=== PATIENT | male | born 1975 | race African-American/Black ===

== ENCOUNTER 2017-02-10 11:18 | Emergency (ER) | payer OTHER ==
[~2017-02-10] VITALS: Ht 180.3 cm; Wt 77.1 kg
[~2017-02-10 11:18] MED LIST: IBUPROFEN 600600 M1 PO; NOHOMEMEDICATIONS; NORCO 5-325 TA1 EACH PO; PROBIOTIC1 EAC1 PO; TIZANIDINE HCL4 MG PO; ZANTAC 150MG T150 MG PO
[2017-02-10] MEDS ORDERED: TYLENOL EXTRA500 MG PO (12:47)
[2017-02-10] MEDS ORDERED: TIZANIDINE HCL4 MG PO (14:56)
[2017-02-10] MEDS ORDERED: NORCO 5-325 TA1 EACH PO (14:56)
[2017-02-10] MEDS ORDERED: NAPROSYN500 MG PO (14:56)
[2017-02-10 15:05] VITALS: BP 117/66
== END 2017-02-10 15:05 | disposition home or self-care (01) ==
LOC: ER 11:18
DX: M54.2 Cervicalgia (principal); F10.99 Alcohol use, unspecified with unspecified alcohol-induced disorder

== ENCOUNTER 2017-08-18 16:02 | Inpatient (IN) | payer OTHER ==
[~2017-08-18] VITALS: Ht 180.3 cm; Wt 77.1 kg
--- NOTE | ~2017-08-18 | H ---
[facility] [place] [address] HISTORY AND PHYSICAL Name: VALE AMBRIZ MAREK Room #: 422-P ADM IN M.R.#: [id number] Admission: 08/18/17 Attend Phys: Cam Zuniga MD Discharge: Date of : 77 Report #: [id number] THIS REPORT FOR: //name// CC: [facility] physician/PCP Cam Zuniga DATE OF SERVICE: 08/18/2017 CHIEF COMPLAINT: Acute left incarcerated inguinal hernia. HISTORY OF PRESENT ILLNESS: This is the first [facility] admission for this 42-year-old male who I saw for the first time in my office earlier this afternoon. He reports pain began in his left groin in the evening of 08/15. He denies any heavy lifting or trauma or fall or overuse or straining at the stool to trigger this event. He felt a sharp pain for a minute, it subsided and then persisted, throbbing and never went away. Sfnw-zle-rgtfzzz medications were of no benefit. If he were able to lie flat and completely stretch out and extend his left leg, it would improve the pain. If he were to laugh or cough, his pain would increase. Over the ensuing weekend, he took it easy around the house and informed himself about the condition on the Internet and said that he thought that it was a hernia. When it persisted this morning, he decided to leave work and have it evaluated. PAST MEDICAL HISTORY: Perhaps arthritis was diagnosed at one time in February, but other than that, no official medical problems. He did report having bright red blood in his stools on a regular basis until he stopped drinking alcohol about a year ago. Then, perhaps one brief episode of bright red blood in his stools 30 days ago. He has not had appendectomy or cholecystectomy or any surgery of any kind. FAMILY HISTORY: Noncontributory. SOCIAL HISTORY: He does not currently drink. He is fully employed. He reports having quit drinking alcohol on 10/20/2016 and an occasional use of marijuana. He drinks coffee in the morning and does not use tobacco. MEDICATIONS: He takes no medications. Cofd-qgo-cjawptn medications have not been effective for his left groin pain. ALLERGIES: HE REPORTS AN ALLERGY TO [facility]. PHYSICAL EXAMINATION: GENERAL: Shows a 42-year-old male who was in progressive discomfort as the visit unfolded. He is awake, alert and oriented. He has a better than average fund of knowledge. HEENT: His oropharynx is mildly dry. [facility] [address] [place] [address] HISTORY AND PHYSICAL Name: VALE AMBRIZ Room #: 422-P [facility] IN [facility]#: [id number] Admission: 08/18/17 Attend Phys: Cam Zuniga MD Discharge: Date of : 77 Report #: [id number] NECK: Negative. LUNGS: Clear. HEART: Tones are normal. ABDOMEN: Negative for hepatosplenomegaly or masses. He does have mild tenderness to palpation over the left inguinal ligament area. When lying flat on the exam table, he was surprised that the "lump that was there has now gone!" However, when lying supine, the left scrotal sac is full of small bowel that is quite tender to the touch. EXTREMITIES: Unremarkable and screening neurological examination is normal as well. ASSESSMENT: 1. Left inguinal hernia, acute/subacute, incarcerated. 2. bright red blood in stools, as detailed above. The patient has not had anything to eat today and the last fluid intake was 1 cup of coffee earlier this morning. Telephone call placed to Dr. Prince and direct admission is being arranged for urgent surgical consultation and perhaps release of his incarcerated inguinal hernia later on this evening. The patient is admitted at [facility]. The patient has been told to remain n.p.o. By: [id number] Cam Zuniga MD /nt
--- NOTE | ~2017-08-18 | HC ---
[facility] [place] [address] CONSULTATION Name: VALE AMBRIZ II Room #: 422-P [facility] IN M.R.#: [id number] Admission: 08/18/17 Attend Phys: Cam Zuniga MD Discharge: 08/19/17 Date of : 77 Report #: [id number] THIS REPORT FOR: //name// CC: [facility] physician/PCP Cam Zuniga CHIEF COMPLAINT: Left inguinal pain. HISTORY OF PRESENT ILLNESS: The patient is a very pleasant 42-year-old gentleman who is being seen today at the request Dr. Cam Zuniga for evaluation and management of left inguinal pain. He reports a several-day history of an intermittent bulge in the left groin. He was acutely ill and was admitted to the hospital last night. CT and General Surgery were performed and I defer to the CT report and the general surgery evaluation. He denies significant difficulties voiding. No flank pain, fever or chills. He really denies scrotal or testicular swelling. ALLERGIES: None. MEDICATIONS: Include lorazepam 0.5 mg every 8 hours p.r.n., iohexol and potassium chloride. PAST SURGICAL HISTORY: No prior surgeries. CHRONIC ILLNESSES: None. SOCIAL HISTORY: History of alcoholism, but he quit in 2017. He uses marijuana occasionally. REVIEW OF SYSTEMS: No fever, chills or chest pain. PHYSICAL EXAMINATION: GENERAL: He is a comfortable appearing gentleman, lying in bed. VITAL SIGNS: Temperature is 36.9, pulse 68, respirations 20, blood pressure 107/69. ABDOMEN: Soft, without masses. GENITOURINARY: He has normal phallus, testes are descended bilaterally. There is no induration of the cord or testicle on either side. No erythema, no scrotal swelling. LABORATORY DATA: White count 8.3 thousand; hemoglobin 14.8; hematocrit 43.4; platelets 247,000. Sodium 135, potassium 4.4, chloride 106, CO2 25, BUN 14, creatinine 0.8, glucose 80, calcium is 8.1. CT abdomen and pelvis is unremarkable. IMPRESSION: History of left lower quadrant discomfort and bulge. [facility] [address] [place] [address] CONSULTATION Name: PBVALE Room #: 422-P [facility] IN .R.#: [id number] Admission: 08/18/17 Attend Phys: Cam Zuniga MD Discharge: 08/19/17 Date of : 77 Report #: [id number] PLAN: 1. I will leave any surgical decisions up to General Surgery. 2. We will obtain scrotal ultrasound, this on reviewing, I will consider pain management consultation. Happy to follow with you. <ELECTRONICALLY SIGNED> By: Gabriele Hou MD 08/20/17 [id number] [id number] Gabriele Hou MD /nt
--- NOTE | ~2017-08-18 | D ---
[facility] [place] [address] DISCHARGE SUMMARY Name: VALE AMBRIZ MAREK Room #: 422-P [facility] IN M.R.#: [id number] Admission: 08/18/17 Attend Phys: Cam Zuniga MD Discharge: 08/19/17 Date of : 77 Report #: [id number] THIS REPORT FOR: //name// CC: [facility] physician/PCP Cam Zuniga DATE OF SERVICE: 08/19/2017 SUMMARY OF HISTORY AND PHYSICAL: The patient presented to the office with sudden onset of severe pain and swelling and protuberance in his left groin area. In the office, he was so tender that it was difficult for him to allow an examination. It appeared on exam that he had a direct incarcerated inguinal hernia with a round cylindrical extremely tender mass in the superior left scrotal area. Based on that finding and his history, a direct admission was obtained along with an urgent surgical consultation for a possible surgery, given the history that this had developed suddenly on 08/15/2017 and it persisted without abating in the pain and physical lump had persisted without improving since that time. SUMMARY OF HOSPITAL COURSE: The patient was admitted and placed on intravenous fluids and intravenous pain medication. His urinalysis returned showing that he was in ketosis, indicating that he was dehydrated and on physical exam had dry oropharynx, he was also dehydrated. Intravenous fluids and intravenous pain medications were administered. He was seen in surgical consultation by Dr. Alcantar. Dr. Alcantar examined the patient and found him quite exquisitely painful to the examination, and also reviewed the CT scan. On the CT scan, there was not a hernia present, but there was a dramatically enlarged and swollen spermatic cord (when compared with a normal right side). The patient and his partner were relieved that he did not require emergency surgery. I went back with the patient and examined him a second time. The area was still extremely painful, and continued admission to the hospital was necessary for intravenous fluids and intravenous pain medication. The following morning, he was seen in Neurology consultation and specialty Urology consultation by Dr. Gabriele Hou. By that time, the medication had dramatically reduced his pain from being intolerable to the level of a 2. Dr. Hou's examination was reported as being normal and ordered a scrotal ultrasound. The ultrasound showed both right and left testicles to be normal with normal blood flow. There is a suggestion of a small left varicocele. There was no increase in flow with Valsalva maneuver. My examination this morning, the second hospital day revealed the size of his swollen left spermatic cord had diminished significantly, and the tenderness was [facility] [address] [place] [address] DISCHARGE SUMMARY Name: VALE AMBRIZ Room #: 422-P [facility]..#: [id number] Admission: 08/18/17 Attend Phys: Cam Zuniga MD Discharge: 08/19/17 Date of : 77 Report #: [id number] quite a bit less. Nonetheless, the swelling was still present and was still quite tender. LABORATORY DATA: CMP was normal. White blood cells were 8300, hemoglobin is 14.8 and the differential was normal. Followup BMP after overnight rehydration was also normal. Urinalysis was normal. CT scan of the abdomen and pelvis with IV contrast but without oral contrast showed some geographic hepatic steatosis and was otherwise normal. ASSESSMENT: 1. Severe left inguinal/groin pain and swelling - improved with treatment. 2. Left spermatic cord inflammation/infection with the swelling and exquisite tenderness. 3. Electrocardiogram showed nonspecific changes with borderline ST segment elevation in the anterior leads and early R-wave progression. 4. Other problems as in the history and physical. ADDITIONAL HISTORY: On second hospital day, the patient reported that he had been feeling mild amount of swelling and pain and tenderness in the left groin area for "some time," and that suddenly on the evening of 08/15/2017, this swelling became tremendous and the pain tremendous and persisted until his coming to my office and then the hospital. PLAN: The patient was given 1 gram of ceftriaxone IV and levofloxacin 500 mg 1 daily for 10 days for empirical treatment for possible STD. Tramadol 50 mg one 4 times a day with Tylenol tablet if and when needed for pain. Ibuprofen 800 mg 3 times a day on a scheduled basis with food for anti-inflammatory benefits. He is to elevate his scrotum with an athletic supporter and with towels or other support when he is lying down. He is to be seen in my office on 08/21/2017 in followup. He may see Dr. Hou in his office if desired or if necessary. Laboratory pending at the time of dictation HIV antibody, syphilis antibody, urine for chlamydia and gonorrhea by PCR. By: [id number] 1458 Cam Zuniga MD /taylor
--- NOTE | ~2017-08-18 | EKG ---
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 : 1975 Requested By: Cam Zuniga Order Number: [id number] MD: Ki Arellano Measurements Intervals [place] Rate: 60 P: 35 PA: 164 QRS: 2 QRSD: 108 T: 59 QT: 417 QTc: 417 Interpretive Statements Sinus rhythm Abnormal R-wave progression, early transition No previous ECG available for comparison Electronically Signed On 08-19-2017 17:41:03 CDT by Ki Arellano [email or web address] <ELECTRONICALLY SIGNED> By: Ki Arellano MD, [facility] 08/19/17 174 174 174 Ki Arellano MD, [facility] /EPI
[~2017-08-18 16:02] MED LIST changes: +NAPROSYN500 MG PO; +TYLENOL EXTRA500 MG PO
[2017-08-18 16:59] VITALS: BP 124/79
[2017-08-18 17:24] LABS: ABSOLUTE NEUTROPHILS 4.6 thou/uL (1.4-8.2); BASOPHILS 0.5 % (0.0-2.0); EOSINOPHILS 1.8 % (0.0-3.0); HEMATOCRIT 43.4 % (42.0-52.0); HEMOGLOBIN 14.8 gm/dL (14.0-18.0); LYMPHOCYTES 35.4 % (24.0-44.0); MCH 31.3 pg (26.0-34.0); MCV 91.8 fL (80.0-100.0); MONOCYTES 6.1 % (1.0-8.0); PLATELET COUNT 247 thou/uL (150-400); POLYS 56.2 % (36.0-66.0); RBC 4.72 mil/uL (4.50-6.00); RDW 14.2 % (10.5-14.5); WBC 8.3 thou/uL (4.0-11.0)
[2017-08-18 17:32] LABS: CALCIUM 8.4 mg/dL (8.5-10.1); CREATININE 0.9 mg/dL (0.7-1.3); POTASSIUM 3.9 mmol/L (3.5-5.1)
[2017-08-18 17:38] LABS: TOTAL BILIRUBIN 0.6 mg/dL (<0.1-1.0); TOTAL PROTEIN 7.2 g/dL (6.4-8.2)
[2017-08-18] MEDS ORDERED: TYLENOL325 MG PO (19:21)
[2017-08-18 20:00] VITALS: BP 123/80
[2017-08-18 20:04] LABS: APTT 32.3 Seconds (24.5-32.8); PROTIME 10.7 Seconds (9.3-11.4)
[2017-08-18 21:57] LABS: URINE BILIRUBIN NEGATIVE (Negative); URINE BLOOD NEGATIVE (Negative); URINE CLARITY CLEAR; URINE COLOR YELLOW; URINE GLUCOSE-RANDOM* NEGATIVE (Negative); URINE KETONES 1+ (Negative); URINE LEUKOCYTES-REFLEX NEGATIVE (Negative); URINE NITRITE-REFLEX NEGATIVE (Negative); URINE PROTEIN (DIPSTICK) NEGATIVE (Negative); URINE UROBILINOGEN 0.2 E.U./dl (0.2-1.0)
[2017-08-19 05:30] VITALS: BP 97/62
[2017-08-19 06:26] LABS: CALCIUM 8.1 mg/dL (8.5-10.1); CREATININE 0.8 mg/dL (0.7-1.3); POTASSIUM 4.4 mmol/L (3.5-5.1)
[2017-08-19 07:04] VITALS: BP 107/69
[2017-08-19 11:39] VITALS: BP 115/81
[2017-08-19] MEDS ORDERED: TRAMADOL 50 MG50 MG PO (13:20)
[2017-08-19] MEDS ORDERED: IBUPROFEN 800800 M1 PO (13:20)
[2017-08-19] MEDS ORDERED: LEVAQUIN 500 M500 M2 PO (13:20)
[2017-08-19 13:30] VITALS: BP 115/81
[2017-08-19 22:10] LABS: HIV ANTIBODY Non Reactive (Non Reactive)
== END 2017-08-19 14:29 | disposition home or self-care (01) | DRG 394 ==
LOC: 4E 16:02
PROVIDERS: Internal Medicine; Surgery
DX: K40.30 Unilateral inguinal hernia, with obstruction, without gangrene, not specified as recurrent (principal); K62.5 Hemorrhage of anus and rectum; E86.0 Dehydration; M19.90 Unspecified osteoarthritis, unspecified site; Z91.018 Allergy to other foods; N49.1 Inflammatory disorders of spermatic cord, tunica vaginalis and vas deferens
CPT/HCPCS: 10783

== ENCOUNTER 2018-11-21 22:01 | Emergency (ER) | payer OTHER ==
[~2018-11-21] VITALS: Ht 180.3 cm; Wt 77.1 kg
[~2018-11-21 22:01] MED LIST changes: +IBUPROFEN 800800 M1 PO; +LEVAQUIN 500 M500 M2 PO; +TRAMADOL 50 MG50 MG PO; +TYLENOL325 MG PO
[2018-11-21] MEDS ORDERED: NORCO 5-325 TA1 EAC1 PO (23:31)
[2018-11-21 23:54] VITALS: BP 111/75
== END 2018-11-22 00:07 | disposition home or self-care (01) ==
LOC: ER 22:01
DX: S82.832A Other fracture of upper and lower end of left fibula, initial encounter for closed fracture (principal); M19.90 Unspecified osteoarthritis, unspecified site; Z87.891 Personal history of nicotine dependence; Z91.018 Allergy to other foods; V89.2XXA Person injured in unspecified motor-vehicle accident, traffic, initial encounter; Y92.89 Other specified places as the place of occurrence of the external cause; Y93.89 Activity, other specified; Y99.8 Other external cause status